=== PATIENT | female | born 2000 | race African-American/Black ===

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

== ENCOUNTER 2022-03-20 12:55 | Emergency (ER) | payer MEDICAID ==
[~2022-03-20] VITALS: Ht 162.6 cm; Wt 47.0 kg
[2022-03-20] MEDS ORDERED: METOCLOPRAMIDE HCL 10MG/2ML VIAL IV ONE (14:30)
[2022-03-20] MEDS ORDERED: SODIUM CHLORIDE 0.9% 1,000 ML IV ONE (14:30)
[2022-03-20] MEDS ORDERED: ACETAMINOPHEN 325MG TABLET PO ONE (14:45)
[2022-03-20 15:42] LABS: BASOPHILS % 0.3 % (0.0-2.0); EOSINOPHILS % 0.1 % (0.0-5.0); HEMATOCRIT. 36.7 % (36.0-48.0); HEMOGLOBIN. 12.4 g/dL (12.0-16.0); LYMPHOCYTES % 17.5 % (20.0-50.0); MEAN CORPUSCULAR HEMOGLOBIN 28.9 pg (28.0-32.0); MEAN CORPUSCULAR VOLUME 85.8 fL (81.0-99.0); MEAN PLATELET VOLUME 9.6 fl (7.4-10.4); MONOCYTES % 3.9 % (2.0-8.0); NEUTROPHILS % 78.2 % (40.0-76.0); PLATELET 282 x1000/uL (130-400); RED BLOOD CELL COUNT 4.28 mill/uL (4.2-5.4); RED CELL DISTRIBUTION WIDTH 13.9 % (11.6-14.6)
[2022-03-20 15:46] LABS: CHLORIDE 103 mEq/L (98-107)
[2022-03-20 15:48] LABS: CLARITY URINE CLEAR (CLEAR); COLOR URINE DARK YELLOW (YELLOW); KETONES URINE 1+ (NEGATIVE); LEUKOCYTE ESTERASE URINE 1+ (NEGATIVE); NITRITE URINE NEGATIVE (NEGATIVE); OCCULT BLOOD URINE NEGATIVE (NEGATIVE); PH URINE 6.5 (4.5-8.0); PROTEIN URINE 1+ (NEGATIVE); SPECIFIC GRAVITY URINE 1.027 (1.005-1.030)
[2022-03-20] MEDS ORDERED: METOCLOPRAMIDE HCL 10MG/2ML VIAL IV NR (16:30)
[2022-03-20] MEDS ORDERED: IRON1TAB68 MT (16:46)
[2022-03-20] MEDS ORDERED: TOPUD MT (16:46)
[2022-03-20 17:17] LABS: B-HCG QUANTITATIVE > 200000 mIU/mL (<3)
[2022-03-20] MEDS ORDERED: CLOT21CR6 VG (17:18)
[2022-03-20] MEDS ORDERED: NITR-87 MT (17:18)
[2022-03-20 17:55] VITALS: BP 107/76
[2022-03-23 06:07] LABS: NEISSERIA GONORRHOEAE NAA Negative (Negative)
== END 2022-03-20 17:56 | disposition home or self-care (01) ==
LOC: ER 12:55
DX: O23.591 Infection of other part of genital tract in pregnancy, first trimester (principal); Z3A.10 10 weeks gestation of pregnancy; O26.891 Other specified pregnancy related conditions, first trimester; R51.9 Headache, unspecified; R42 Dizziness and giddiness
CPT/HCPCS: 36415; 76802; 76810; 76830; 80053; 81003; 81025; 84702; 85025; 86850; 86900; 86901; 87210; 87491; 87591; 93005; 96361; 96374; 99285; J2765; J7030; Z7610

== ENCOUNTER 2022-03-29 22:28 | Inpatient (IN) | payer MEDICAID, OTHER ==
[~2022-03-29] VITALS: Ht 162.6 cm; Wt 46.3 kg
[~2022-03-29 22:28] MED LIST changes: +CLOT21CR6 VG; +IRON1TAB68 MT; +NITR-87 MT; +TOPUD MT
[2022-03-29] MEDS ORDERED: FOLIC ACID 1 MG, THIAMINE HCL 100 MG, MVI, ADULT NO.1 10 ML in DEXTROSE 5% WATER 1,000 ML IV ONE ×4 (23:00)
[2022-03-29 23:01] LABS: BASOPHILS % 0.2 % (0.0-2.0); HEMATOCRIT. 36.7 % (36.0-48.0); HEMOGLOBIN. 12.2 g/dL (12.0-16.0); LYMPHOCYTES % 12.5 % (20.0-50.0); MEAN CORPUSCULAR HEMOGLOBIN 29.2 pg (28.0-32.0); MEAN CORPUSCULAR VOLUME 87.6 fL (81.0-99.0); MEAN PLATELET VOLUME 9.3 fl (7.4-10.4); MONOCYTES % 3.3 % (2.0-8.0); PLATELET 255 x1000/uL (130-400); RED BLOOD CELL COUNT 4.19 mill/uL (4.2-5.4); RED CELL DISTRIBUTION WIDTH 13.7 % (11.6-14.6)
[2022-03-29 23:11] LABS: CHLORIDE 109 mEq/L (98-107)
[2022-03-29 23:12] LABS: HCG SCREEN POSITIVE
[2022-03-29 23:18] LABS: ETHANOL BLOOD < 10 mg/dL
[2022-03-30 01:55] LABS: CLARITY URINE CLEAR (CLEAR); COLOR URINE YELLOW (YELLOW); KETONES URINE 4+ (NEGATIVE); LEUKOCYTE ESTERASE URINE TRACE (NEGATIVE); NITRITE URINE NEGATIVE (NEGATIVE); OCCULT BLOOD URINE NEGATIVE (NEGATIVE); PROTEIN URINE NEGATIVE (NEGATIVE); SPECIFIC GRAVITY URINE 1.016 (1.005-1.030); UROBILINOGEN URINE 0.2 E.U./dL (0.2-1.0)
[2022-03-30 02:08] LABS: *AMPHETAMINES SCREEN URINE NEGATIVE (NEGATIVE); *BARBITURATES SCREEN URINE NEGATIVE (NEGATIVE); *BENZODIAZEPINES SCREEN URINE NEGATIVE (NEGATIVE); *COCAINE SCREEN URINE NEGATIVE (NEGATIVE); CANNABINOID URINE SCREEN NEGATIVE (NEGATIVE); METHADONE URINE SCREEN NEGATIVE (NEGATIVE); OPIATES URINE SCREEN NEGATIVE (NEGATIVE); PHENCYCLIDINE URINE SCREEN NEGATIVE (NEGATIVE)
[2022-03-30] MEDS ORDERED: ONDANSETRON HCL 4MG/2ML INJ IV ONE (02:30)
[2022-03-30] MEDS ORDERED: LEVETIRACETAM 500MG PREMIX 100 ML IV ONE ×2 (04:00→09:30)
[2022-03-30] MEDS ORDERED: NA PHOS,M-B/NA PHOS,DI-BA ENEMA 118ML PR PRN (05:30)
[2022-03-30] MEDS ORDERED: ACETAMINOPHEN 325MG TABLET PO PRN ×2 (05:30)
[2022-03-30] MEDS ORDERED: DOCUSATE SODIUM 100MG CAPSULE PO PRN (05:30)
[2022-03-30] MEDS ORDERED: GUAIFENESIN 200MG/10ML SUGAR FREE UDC PO PRN (05:30)
[2022-03-30] MEDS ORDERED: IPRATROPIUM/ALBUTEROL 0.5-3(2.5)MG/3ML NEB HHN PRN (05:30)
[2022-03-30] MEDS ORDERED: CLONIDINE 0.1MG TABLET PO PRN (05:30)
[2022-03-30 05:55] LABS: HEMATOCRIT. 32.6 % (36.0-48.0); HEMOGLOBIN. 11.1 g/dL (12.0-16.0); LYMPHOCYTES % 10.8 % (20.0-50.0); MEAN CORPUSCULAR HEMOGLOBIN 29.6 pg (28.0-32.0); MEAN CORPUSCULAR VOLUME 87.3 fL (81.0-99.0); MEAN PLATELET VOLUME 10.1 fl (7.4-10.4); MONOCYTES % 2.3 % (2.0-8.0); NEUTROPHILS % 85.9 % (40.0-76.0); PLATELET 230 x1000/uL (130-400); RED BLOOD CELL COUNT 3.74 mill/uL (4.2-5.4); RED CELL DISTRIBUTION WIDTH 13.8 % (11.6-14.6)
[2022-03-30 06:12] LABS: CHLORIDE 109 mEq/L (98-107)
[2022-03-30 06:27] LABS: PHOSPHORUS 2.7 mg/dL (2.5-4.9); T4 FREE 2.03 ng/dL (0.76-1.46); TOTAL IRON BINDING CAPACITY 335 ug/dL (250-450)
[2022-03-30] MEDS ORDERED: SODIUM CHLORIDE 0.9% 1,000 ML IV SCH (06:30)
[2022-03-30] MEDS ORDERED: POTASSIUM CHLORIDE 20MEQ TABLET SR PO SCH (06:30)
[2022-03-30 06:33] LABS: FERRITIN 20 ng/mL (10-291)
[2022-03-30] MEDS ORDERED: LORAZEPAM 2MG/ML CPJ IV PRN (07:00)
[2022-03-30] MEDS: ONDANSETRON HCL 4MG/2ML INJ IV PRN ×4 (07:12→22:40)
[2022-03-30] MEDS ORDERED: MAGNESIUM 2 G PREMIX 50 ML IV NR (09:00)
[2022-03-30] MEDS ORDERED: MULTIVITAMINS,THER W-MINERALS TABLET PO SCH (09:00)
[2022-03-30] MEDS ORDERED: LEVETIRACETAM 500MG PREMIX 100 ML IV NR (13:15)
[2022-03-30] MEDS: LEVETIRACETAM 500MG TABLET PO SCH ×2 (13:20→21:00)
[2022-03-30] MEDS: FAMOTIDINE 20MG TABLET PO SCH (21:00)
[2022-03-30 23:50] VITALS: BP 104/54
[2022-03-30] MEDS: PRENATAL VIT/FE FUMARATE/FA TABLET PO SCH (23:50)
[2022-03-31] VITALS (7 sets, daily range): BP systolic 99–107; BP diastolic 54–66
[2022-03-31] MEDS: DEXT 5%/LACTATED RINGERS 1,000 ML IV SCH ×2 (01:32→12:57)
[2022-03-31 05:33] LABS: BASOPHILS % 0.3 % (0.0-2.0); EOSINOPHILS % 0.4 % (0.0-5.0); HEMATOCRIT. 29.5 % (36.0-48.0); HEMOGLOBIN. 10.2 g/dL (12.0-16.0); LYMPHOCYTES % 24.3 % (20.0-50.0); MEAN CORPUSCULAR HEMOGLOBIN 29.2 pg (28.0-32.0); MEAN CORPUSCULAR VOLUME 84.7 fL (81.0-99.0); MEAN PLATELET VOLUME 9.4 fl (7.4-10.4); MONOCYTES % 6.4 % (2.0-8.0); NEUTROPHILS % 68.6 % (40.0-76.0); PLATELET 209 x1000/uL (130-400); RED BLOOD CELL COUNT 3.48 mill/uL (4.2-5.4); RED CELL DISTRIBUTION WIDTH 13.8 % (11.6-14.6)
[2022-03-31 05:40] LABS: CHLORIDE 109 mEq/L (98-107)
[2022-03-31 05:50] LABS: PHOSPHORUS 3.2 mg/dL (2.5-4.9)
[2022-03-31] MEDS: ONDANSETRON HCL 4MG/2ML INJ IV PRN ×3 (06:20→18:16)
[2022-03-31] MEDS: LEVETIRACETAM 500MG TABLET PO SCH ×2 (08:37→20:46)
[2022-03-31] MEDS ORDERED: POTASSIUM CHLORIDE 20MEQ TABLET SR PO NR (08:45)
[2022-03-31] MEDS: PRENATAL VIT/FE FUMARATE/FA TABLET PO SCH (11:29)
[2022-03-31] MEDS ORDERED: KEPP500 MT (12:04)
[2022-03-31] MEDS: FAMOTIDINE 20MG TABLET PO SCH (20:46)
[2022-04-03 03:15] LABS: VITAMIN B12 SERUM 426 pg/mL (211-911)
== END 2022-03-31 21:15 | disposition home or self-care (01) | DRG 566 ==
LOC: ER 22:28 → 6WST 03-30 03:59 → EDBEDREQSVC 03-30 10:00 → ENRESERV 03-30 19:01
PROVIDERS: ADMIT Internal Medicine; ATTEND Internal Medicine
DX: O99.351 Diseases of the nervous system complicating pregnancy, first trimester (principal); K85.10 Biliary acute pancreatitis without necrosis or infection; E87.20 Acidosis, unspecified; G40.909 Epilepsy, unspecified, not intractable, without status epilepticus; O30.001 Twin pregnancy, unspecified number of placenta and unspecified number of amniotic sacs, first trimester; O16.1 Unspecified maternal hypertension, first trimester; O99.411 Diseases of the circulatory system complicating pregnancy, first trimester; O99.011 Anemia complicating pregnancy, first trimester; O99.511 Diseases of the respiratory system complicating pregnancy, first trimester; O99.281 Endocrine, nutritional and metabolic diseases complicating pregnancy, first trimester; O99.341 Other mental disorders complicating pregnancy, first trimester; J45.909 Unspecified asthma, uncomplicated; Z3A.10 10 weeks gestation of pregnancy; Z90.49 Acquired absence of other specified parts of digestive tract; D72.829 Elevated white blood cell count, unspecified; E87.6 Hypokalemia; R13.10 Dysphagia, unspecified; Z86.11 Personal history of tuberculosis
CPT/HCPCS: 36415; 70551; 71045; 76805; 76810; 80053; 80305; 80320; 81001; 82542; 82607; 82728; 82746; 83550; 83605; 83735; 84100; 84439; 84443; 84702; 84703; 85025; 99285; J1953; J2405; J3411; J3475; J3490; J7070; G0480

== ENCOUNTER 2022-04-22 15:22 | Emergency (ER) | payer OTHER ==
[~2022-04-22] VITALS: Ht 162.6 cm; Wt 45.0 kg
[~2022-04-22 15:22] MED LIST changes: -CLOT21CR6 VG; -IBUP-2029 MT; +KEPP500 MT; -NITR-87 MT; -OXYC-100 MT
[2022-04-22 15:42] VITALS: BP 101/70
== END 2022-04-22 20:18 | disposition left against medical advice (07) ==
LOC: ER 15:28
DX: Z53.21 Procedure and treatment not carried out due to patient leaving prior to being seen by health care provider (principal)

== ENCOUNTER 2022-07-22 01:57 | Observation (INO) | payer OTHER ==
[~2022-07-22] VITALS: Ht 162.6 cm; Wt 51.7 kg
[2022-07-22] MEDS ORDERED: DEXT 5%/LACTATED RINGERS 1,000 ML IV ONE (02:45)
[2022-07-22] MEDS ORDERED: DEXT 5%/LACTATED RINGERS 1,000 ML IV NR (03:00)
[2022-07-22] MEDS ORDERED: DEXT 5%/LACTATED RINGERS 1,000 ML IV SCH (03:30)
[2022-07-22 03:43] LABS: CLARITY URINE CLOUDY (CLEAR); COLOR URINE YELLOW (YELLOW); KETONES URINE NEGATIVE (NEGATIVE); LEUKOCYTE ESTERASE URINE 1+ (NEGATIVE); NITRITE URINE NEGATIVE (NEGATIVE); OCCULT BLOOD URINE NEGATIVE (NEGATIVE); PH URINE 7.5 (4.5-8.0); PROTEIN URINE NEGATIVE (NEGATIVE); SPECIFIC GRAVITY URINE 1.014 (1.005-1.030)
[2022-07-22] MEDS ORDERED: ACETAMINOPHEN 500MG TABLET PO PRN (04:30)
[2022-07-22] MEDS ORDERED: TERBUTALINE SULFATE 1MG/ML VIAL SUBCUT NR (05:00)
== END 2022-07-22 07:45 | disposition home or self-care (01) ==
LOC: 8 EST LDRP 01:57
PROVIDERS: ADMIT Obstetrics & Gynecology; ATTEND Obstetrics & Gynecology
DX: O26.893 Other specified pregnancy related conditions, third trimester (principal); R10.30 Lower abdominal pain, unspecified; O62.9 Abnormality of forces of labor, unspecified; Z3A.28 28 weeks gestation of pregnancy
CPT/HCPCS: 59025; 76805; 76810; 81003; 82731; 96360; 96361; 96372; G0378; J3105; 99281

== ENCOUNTER 2022-08-04 20:16 | Observation (INO) | payer OTHER ==
[2022-08-04] MEDS ORDERED: [UNRECOGNIZED DRUG - OTHER] (21:43)
== END 2022-08-04 21:44 | disposition home or self-care (01) ==
LOC: 8 EST LDRP 20:16
PROVIDERS: ADMIT Obstetrics & Gynecology; ATTEND Obstetrics & Gynecology
DX: O62.9 Abnormality of forces of labor, unspecified (principal); O99.891 Other specified diseases and conditions complicating pregnancy; M54.9 Dorsalgia, unspecified; Z3A.30 30 weeks gestation of pregnancy
CPT/HCPCS: 59025; 99281; G0378

== ENCOUNTER 2022-09-05 00:57 | Observation (INO) | payer MEDICAID, OTHER ==
[~2022-09-05] VITALS: Ht 162.6 cm; Wt 57.2 kg
[~2022-09-05 00:57] MED LIST changes: -ALBU4TAB6 MT; -IRON1TAB68 MT; -KEPP500 MT; -ONDA4TAB5 SL; -TOPUD MT; +[UNRECOGNIZED DRUG - OTHER]
[2022-09-05] MEDS ORDERED: PNV1TABL50 PO (05:49)
[2022-09-05] MEDS ORDERED: CALC-1042 MT (05:50)
[2022-09-05] MEDS ORDERED: FERR325T6 MT (05:51)
[2022-09-05] MEDS ORDERED: KEPP500 MT (05:52)
== END 2022-09-05 06:00 | disposition home or self-care (01) ==
LOC: 8 EST LDRP 00:57
PROVIDERS: ADMIT Obstetrics & Gynecology; ATTEND Obstetrics & Gynecology
DX: O42.913 Preterm premature rupture of membranes, unspecified as to length of time between rupture and onset of labor, third trimester (principal); O30.003 Twin pregnancy, unspecified number of placenta and unspecified number of amniotic sacs, third trimester; O26.893 Other specified pregnancy related conditions, third trimester; N89.8 Other specified noninflammatory disorders of vagina; Z3A.32 32 weeks gestation of pregnancy; Z98.891 History of uterine scar from previous surgery
CPT/HCPCS: 59025; 76805; 76810; 76815; 76818; G0378; 99281

== ENCOUNTER 2022-11-26 22:45 | Emergency (ER) | payer MEDICAID, OTHER ==
[~2022-11-26] VITALS: Ht 162.6 cm; Wt 51.0 kg
[~2022-11-26 22:45] MED LIST changes: +CALC-1042 MT; +FERR325T6 MT; +KEPP500 MT; +PNV1TABL50 PO
[2022-11-26 23:32] LABS: BASOPHILS % 0.8 % (0.0-2.0); EOSINOPHILS % 0.5 % (0.0-5.0); HEMATOCRIT. 35.3 % (36.0-48.0); HEMOGLOBIN. 11.1 g/dL (12.0-16.0); LYMPHOCYTES % 44.1 % (20.0-50.0); MEAN CORPUSCULAR HEMOGLOBIN 24.4 pg (28.0-32.0); MEAN CORPUSCULAR VOLUME 77.5 fL (81.0-99.0); MEAN PLATELET VOLUME 8.5 fl (7.4-10.4); NEUTROPHILS % 50.6 % (40.0-76.0); PLATELET 293 x1000/uL (130-400); RED BLOOD CELL COUNT 4.56 mill/uL (4.2-5.4); RED CELL DISTRIBUTION WIDTH 20.2 % (11.6-14.6)
[2022-11-26 23:47] LABS: CHLORIDE 110 mEq/L (98-107)
[2022-11-27] MEDS ORDERED: LEVETIRACETAM 1000MG PREMIX 100 ML IV ONE (02:15)
[2022-11-27 02:49] LABS: CLARITY URINE CLEAR (CLEAR); COLOR URINE YELLOW (YELLOW); KETONES URINE NEGATIVE (NEGATIVE); LEUKOCYTE ESTERASE URINE NEGATIVE (NEGATIVE); NITRITE URINE NEGATIVE (NEGATIVE); OCCULT BLOOD URINE NEGATIVE (NEGATIVE); PROTEIN URINE NEGATIVE (NEGATIVE); SPECIFIC GRAVITY URINE 1.012 (1.005-1.030); UROBILINOGEN URINE 0.2 E.U./dL (0.2-1.0)
[2022-11-27] MEDS ORDERED: ACETAMINOPHEN 325MG TABLET PO ONE (03:30)
[2022-11-27] MEDS ORDERED: LEVE750T4 MT (04:49)
[2022-11-27 04:51] VITALS: BP 120/69
== END 2022-11-27 05:15 | disposition home or self-care (01) ==
LOC: ER 22:45
DX: R56.9 Unspecified convulsions (principal); M54.50 Low back pain, unspecified; J45.909 Unspecified asthma, uncomplicated; Z90.89 Acquired absence of other organs
CPT/HCPCS: 36415; 72070; 72100; 80053; 81003; 81025; 85025; 93005; 96374; 99285; J1953; Z7610